=== PATIENT | female | born 1945 | race Hispanic/Latino ===

== ENCOUNTER → 2018-02-06 | Outpatient (CLI) | payer MEDICARE | END | disposition home or self-care (01) | LOC: RAH 08:42 | PROVIDERS: ATTEND Internal Medicine Nephrology | DX: Z12.31 Encounter for screening mammogram for malignant neoplasm of breast (principal) | CPT/HCPCS: 77067 ==

== ENCOUNTER → 2019-02-07 | Outpatient (CLI) | payer MEDICARE | END | disposition home or self-care (01) | LOC: RAH 07:45 | PROVIDERS: ATTEND Internal Medicine Nephrology | DX: Z12.31 Encounter for screening mammogram for malignant neoplasm of breast (principal) | CPT/HCPCS: 77067 ==

== ENCOUNTER 2025-06-11 05:45 | Day surgery (SDC) | payer OTHER, MEDICARE ==
[2025-06-07 10:28] LABS: IMMATURE GRANULOCYTE ABSOLUTE 0.02 K/uL (0-1); NUCLEATED RED BLOOD CELLS 0.0 % (0.0-0.19); PLATELET COUNT (AUTO) 339 K/uL (130-400); RED BLOOD CELL COUNT(AUTO) 4.00 MIL/uL (4.00-5.50); RED CELL DISTRIBUTION WIDTH 13.0 % (11.0-15.5); WHITE BLOOD COUNT (AUTO) 8.1 K/uL (4.8-10.8)
[2025-06-07 10:40] LABS: CREATININE 1.2 mg/dL (0.5-1.0); GLOMERULAR FILTR. RATE CALC 46.0 mL/min (>90); GLUCOSE,RANDOM 117.0 mg/dL (70-105); SODIUM SERUM 139.0 mmol/L (136-145); UREA NITROGEN, BLOOD 41.0 mg/dL (7-18)
--- NOTE | 2025-06-07 11:10 | EKG ---
[facility] Test Date: 2025-06-07 Test Time: 10:14:26 Pat Name: MINDY AKINS Department: [facility] Room: Gender: F Database Administration Associate: [id number] : 1945 Requested By: MARIA DE JESUS JOHN Order Number: [id number] Reading MD: Maria De Jesus John Measurements Intervals [place] Rate: 73 P: 61 IN: 125 QRS: 53 QRSD: 98 T: 71 QT: 412 QTc: 455 Interpretive Statements Sinus rhythm Probable left atrial enlargement Compared to ECG 12/03/2024 11:21:12 Left-axis deviation no longer present Left bundle-branch block no longer present Electronically Signed On 06-10-2025 15:06:33 CDT by Maria De Jesus John Please click the below link to view image of tracing.
[2025-06-07 11:16] VITALS: BP 158/70; PULSE 76; RESP 14; TEMP 98.1
--- NOTE | 2025-06-07 15:23 | NUR ---
REPORT REPORTED POTASSIUM TO DR Manjinder BUENO. RECEIVED ORDERS TO REPEAT AM OF PROCEDURE.
[~2025-06-11] VITALS: Ht 157.5 cm; Wt 51.3 kg
[2025-06-11] VITALS (8 sets, daily range): BP systolic 93–148; BP diastolic 36–74; PULSE 66–75; RESP 14–15; TEMP 97.5–97.7
[~2025-06-11 05:45] MED LIST: ASPI-1197 PO; ATOR10 PO; FURO40TA5 PO; GABA-529 PO; GLIM2TAB30 PO; LEVO75CA6 PO; METHOCARBAMOL PO; PANT40TA54 PO; TRESIBA SQ
[2025-06-11] MEDS ORDERED: LIDOCAINE HCL 2% VISCOUS 15 ML UDCUP PO ONE (07:00)
[2025-06-11] MEDS ORDERED: LIDOCAINE PF 100MG/5ML (2%) SYRINGE 5ML ONE (07:12)
[2025-06-11] MEDS ORDERED: ATROPINE 1MG SYG IVP ONE (07:13)
--- NOTE | 2025-06-11 08:35 | NUR ---
BOTH PT AND SONS GIVEN VERBAL AND WRITTEN DISCHARGE INSTRUCTIONS IV REMOVED SITE ASYMPTOMATIC. PT TAKEN OUT VIA WHEELCHAIR SON DRIVING.
--- NOTE | 2025-06-12 07:26 | HMCSR ---
APPROVED REPORT EXAM: Transesophageal echocardiogram with color flow Doppler. INDICATION ICD: t82.857 PROCEDURE After obtaining informed consent, patient underwent transesophageal echo in the Day Patient Room 14 . 15 mL 2% Viscous Lidocaine was given as a topical anesthetic prior to the administration of the consc ious sedation. Type of Sedation: General Anesthesia Sedation was administered by refer to chart. Sedation was achieved with refer to chart intravenously. Transesophageal probe was inserted and advanced into esophagus without difficulty by Dr. Maria De Jesus paz. GRZEGORZ was performed and images were obtained, probe was removed without complications. Throughout the procedure, the blood pressure, pulse oximetry, cardiac rhythm, and rate were monitored . The patient tolerated the procedure without adverse effects. Recovery from conscious sedation was une ventful and vital signs were stable. Left Ventricle Left ventricular cavity size is normal. There is normal left ventricular wall thickness. LVEF is 50-5 5%. Right Ventricle The right ventricle is normal size. The right ventricular systolic function is normal. Atria The left atrium size is normal. No thrombus is visualized in the left atrium or appendage. The right atrium size is normal. 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 No aortic regurgitation is present. There is no aortic valvular stenosis. Mitral Valve Prosthetic mitral valve is normal in appearance. 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 There is no mitral valve stenosis. Tricuspid Valve The tricuspid valve is normal in structure and function. There is no tricuspid valve regurgitation no rivka. Pulmonic Valve The pulmonary valve is normal in structure and function. There is no pulmonic valvular regurgitation. Great Vessels The aortic root is normal in size. Pericardium No pericardial effusion. Conclusion Left ventricular cavity size is normal. LVEF is 50-55%. The right ventricle is normal size. The right ventricular systolic function is normal. The left atrium size is normal. No thrombus is visualized in the left atrium or appendage. The right atrium size is normal. 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 Prosthetic mitral valve is normal in appearance. 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 There is no mitral valve stenosis. No pericardial effusion.
== END 2025-06-11 08:44 | disposition home or self-care (01) ==
LOC: DAH 05:45
PROVIDERS: ATTEND Student in an Organized Health Care Education/Training Program
DX: T82.857A Stenosis of other cardiac prosthetic devices, implants and grafts, initial encounter (principal); E11.9 Type 2 diabetes mellitus without complications; T82.7XXA Infection and inflammatory reaction due to other cardiac and vascular devices, implants and grafts, initial encounter; E03.9 Hypothyroidism, unspecified; I10 Essential (primary) hypertension; K21.9 Gastro-esophageal reflux disease without esophagitis; I25.2 Old myocardial infarction; E78.2 Mixed hyperlipidemia; Z95.5 Presence of coronary angioplasty implant and graft; Z90.710 Acquired absence of both cervix and uterus; Z90.49 Acquired absence of other specified parts of digestive tract; R01.1 Cardiac murmur, unspecified; Z79.82 Long term (current) use of aspirin; Z79.899 Other long term (current) drug therapy; Y71.3 Surgical instruments, materials and cardiovascular devices (including sutures) associated with adverse incidents
CPT/HCPCS: 80048; 85025; 36415 ×2; 93005; 84132; 82948; 93325; 93312; J2003; J0169; J0461; J2704 ×2; J2371; A4620; A4215; A4223 ×3; A4657; A7002; A4222; A4221; A4663; A4216; A4606; J3490